=== PATIENT | male | born 1995 | race Two or more races ===

== ENCOUNTER 2016-11-05 03:14 | Emergency (ER) | payer OTHER ==
[~2016-11-05] VITALS: Ht 182.9 cm; Wt 70.3 kg
[2016-11-05] MEDS ORDERED: IBUPROFEN 400 MG TABLET PO ONE (04:00)
[2016-11-05] MEDS ORDERED: IBUPROFEN 400 MG TABLET ONE (04:04)
[2016-11-05 07:00] VITALS: BP 119/50
== END 2016-11-05 05:00 | disposition home or self-care (01) ==
LOC: ER 03:15
DX: S09.90XA Unspecified injury of head, initial encounter (principal); S13.9XXA Sprain of joints and ligaments of unspecified parts of neck, initial encounter; S80.02XA Contusion of left knee, initial encounter; S80.01XA Contusion of right knee, initial encounter; V49.49XA Driver injured in collision with other motor vehicles in traffic accident, initial encounter; Y93.89 Activity, other specified; Y92.89 Other specified places as the place of occurrence of the external cause; Y99.0 Civilian activity done for income or pay
CPT/HCPCS: 70450; 72125; 73564 ×2; 99284; A4606; Z7610

== ENCOUNTER 2022-10-05 23:15 | Emergency (ER) | payer OTHER ==
[~2022-10-05] VITALS: Ht 182.9 cm; Wt 68.0 kg
[2022-10-06] MEDS ORDERED: IBUPROFEN 400 MG TABLET PO ONE
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
[2022-10-06] MEDS ORDERED: IBUPROFEN 400 MG TABLET ONE (00:14)
--- NOTE | 2022-10-06 00:16 | NUR ---
PT TAKEN TO CT SCAN VIA JIE
[2022-10-06 03:01] VITALS: BP 128/74
--- NOTE | 2022-10-06 03:01 | NUR ---
Patient discharged to home in stable condition. Written and verbal after care instructions given. Patient verbalizes understanding of instruction.
== END 2022-10-06 03:02 | disposition home or self-care (01) ==
LOC: ER 23:17
DX: S13.4XXA Sprain of ligaments of cervical spine, initial encounter (principal); S29.012A Strain of muscle and tendon of back wall of thorax, initial encounter; S09.90XA Unspecified injury of head, initial encounter; V89.2XXA Person injured in unspecified motor-vehicle accident, traffic, initial encounter; Y93.89 Activity, other specified; Y92.89 Other specified places as the place of occurrence of the external cause; Y99.8 Other external cause status
CPT/HCPCS: 70450-TC; 72074-TC; 72125-TC